=== PATIENT | female | born 1985 | race Caucasian/White ===

== ENCOUNTER 2018-05-22 07:30 | Emergency (ER) | payer SELFPAY ==
[~2018-05-22] VITALS: Ht 160 cm; Wt 113.0 kg
[2018-05-22] MEDS ORDERED: ONDANSETRON HCL 4MG/2ML INJ IV STA (07:59)
[2018-05-22] MEDS ORDERED: KETOROLAC 30MG/ML VIAL IV STA (07:59)
[2018-05-22] MEDS ORDERED: ACETAMINOPHEN 325MG TABLET PO STA (07:59)
[2018-05-22] MEDS ORDERED: SODIUM CHLORIDE 0.9% 1,000 ML IV ONE (07:59)
[2018-05-22] MEDS ORDERED: MORPHINE SULFATE 4 MG/ML CPJ (NOT FOR IM USE) IV STA (07:59)
[2018-05-22] MEDS ORDERED: VANCOMYCIN 1 G PREMIX 200 ML IV ONE (08:00)
[2018-05-22] MEDS ORDERED: SODIUM CHLORIDE 0.9% 1000ML BAG (SEPSIS BOLUS) IV ONE (08:00)
[2018-05-22] MEDS ORDERED: PIPERACILLIN/TAZ 3.375G PREMIX 50 ML IV ONE (08:00)
[2018-05-22] MEDS ORDERED: TETANUS, DIPHTHERIA, PERTUSSIS VAC/PF 0.5ML (>7YR OLD) IM ONE (08:15)
[2018-05-22 08:39] LABS: BASOPHILS % 0.6 % (0.0-2.0); EOSINOPHILS % 1.9 % (0.0-5.0); HEMATOCRIT. 40.4 % (36.0-48.0); HEMOGLOBIN. 13.6 g/dL (12.0-16.0); LYMPHOCYTES % 23.1 % (20.0-50.0); MEAN CORPUSCULAR HEMOGLOBIN 30.3 pg (28.0-32.0); MEAN CORPUSCULAR VOLUME 90.2 fL (81.0-99.0); MEAN PLATELET VOLUME 8.8 fl (7.4-10.4); MONOCYTES % 6.5 % (2.0-8.0); NEUTROPHILS % 67.9 % (40.0-76.0); PLATELET 115 x1000/uL (130-400); RED BLOOD CELL COUNT 4.48 mill/uL (4.2-5.4); RED CELL DISTRIBUTION WIDTH 12.8 % (11.6-14.6)
[2018-05-22 08:51] LABS: CHLORIDE 105 mEq/L (98-107)
[2018-05-22 09:00] LABS: HCG SCREEN NEGATIVE
[2018-05-22 09:16] LABS: CLARITY URINE CLOUDY (CLEAR); COLOR URINE YELLOW (YELLOW); PH URINE 6.5 (4.5-8.0); SPECIFIC GRAVITY URINE 1.027 (1.005-1.030)
[2018-05-22 09:17] LABS: KETONES URINE NEGATIVE (NEGATIVE); LEUKOCYTE ESTERASE URINE 3+ (NEGATIVE); NITRITE URINE POSITIVE (NEGATIVE); OCCULT BLOOD URINE TRACE (NEGATIVE); PROTEIN URINE NEGATIVE (NEGATIVE)
[2018-05-22 12:32] VITALS: BP 121/72
== END 2018-05-22 12:45 | disposition short-term general hospital (02) ==
LOC: ER 08:40 → CANBEDREQ 12:44 → ER 12:45
DX: M65.842 Other synovitis and tenosynovitis, left hand (principal); J45.909 Unspecified asthma, uncomplicated
CPT/HCPCS: 36415; 73130; 80053; 81003; 81025; 83605; 84145; 84484; 84703; 85025; 85610; 87040; 87070; 87077; 87086; 87186; 87205; 90471; 90715; 93005; 96365; 96368; 96375; 99285; J1885; J2270; J2405; J2543; J3370; J7030; J7040; Z7610

== ENCOUNTER 2018-10-14 15:06 | Emergency (ER) | payer MEDICAID ==
[~2018-10-14] VITALS: Ht 160 cm; Wt 118.0 kg
[2018-10-14 16:13] LABS: CLARITY URINE CLEAR (CLEAR); COLOR URINE YELLOW (YELLOW); KETONES URINE NEGATIVE (NEGATIVE); LEUKOCYTE ESTERASE URINE TRACE (NEGATIVE); NITRITE URINE NEGATIVE (NEGATIVE); OCCULT BLOOD URINE NEGATIVE (NEGATIVE); PH URINE 6.5 (4.5-8.0); PROTEIN URINE NEGATIVE (NEGATIVE); SPECIFIC GRAVITY URINE 1.003 (1.005-1.030); UROBILINOGEN URINE 0.2 E.U./dL (0.2-1.0)
[2018-10-14] MEDS ORDERED: ACETAMINOPHEN 325MG TABLET PO PRN (23:00)
[2018-10-14 23:24] LABS: BASOPHILS % 0.3 % (0.0-2.0); EOSINOPHILS % 1.8 % (0.0-5.0); HEMATOCRIT. 33.4 % (36.0-48.0); HEMOGLOBIN. 11.2 g/dL (12.0-16.0); LYMPHOCYTES % 30.1 % (20.0-50.0); MEAN CORPUSCULAR HEMOGLOBIN 29.5 pg (28.0-32.0); MEAN CORPUSCULAR VOLUME 87.9 fL (81.0-99.0); MEAN PLATELET VOLUME 9.3 fl (7.4-10.4); MONOCYTES % 8.8 % (2.0-8.0); PLATELET 69 x1000/uL (130-400); RED CELL DISTRIBUTION WIDTH 13.5 % (11.6-14.6)
[2018-10-14 23:29] LABS: CHLORIDE 109 mEq/L (98-107)
[2018-10-14 23:54] LABS: B-HCG QUANTITATIVE 15576 mIU/mL (<3)
[2018-10-15] MEDS ORDERED: NITROFURANTOIN 100MG M/M CAPSULE PO SCH (01:06)
[2018-10-15 01:23] VITALS: BP 110/50
== END 2018-10-15 01:24 | disposition home or self-care (01) ==
LOC: ER 15:06
DX: O23.42 Unspecified infection of urinary tract in pregnancy, second trimester (principal); O99.512 Diseases of the respiratory system complicating pregnancy, second trimester; O21.9 Vomiting of pregnancy, unspecified; Z3A.15 15 weeks gestation of pregnancy; F15.10 Other stimulant abuse, uncomplicated; J45.909 Unspecified asthma, uncomplicated; Z98.890 Other specified postprocedural states
CPT/HCPCS: 36415; 76805; 81025; 84702; 86850; 86900; 99284

== ENCOUNTER 2019-03-03 21:02 | Observation (INO) | payer MEDICAID ==
[2019-03-03] MEDS ORDERED: RANI-383 PO (22:07)
[2019-03-03] MEDS ORDERED: FERR325T6 PO (22:07)
[2019-03-03] MEDS ORDERED: PREN-55 PO (22:07)
[2019-03-03] MEDS ORDERED: VIT1TABL86 PO (22:07)
[2019-03-03] MEDS ORDERED: LORA5TAB8 PO (22:07)
== END 2019-03-03 22:25 | disposition home or self-care (01) ==
LOC: 8 EST LDRP 21:02
PROVIDERS: ADMIT Obstetrics & Gynecology; ATTEND Obstetrics & Gynecology
DX: O26.893 Other specified pregnancy related conditions, third trimester (principal); R51 Headache; R50.9 Fever, unspecified; R05 Cough; Z3A.34 34 weeks gestation of pregnancy
CPT/HCPCS: G0378

== ENCOUNTER 2019-03-03 22:48 | Emergency (ER) | payer MEDICAID ==
[~2019-03-03] VITALS: Ht 162.6 cm; Wt 109.0 kg
[~2019-03-03 22:48] MED LIST: FERR325T6 PO; LORA5TAB8 PO; PREN-55 PO; RANI-383 PO; VIT1TABL86 PO
[2019-03-04 03:02] VITALS: BP 99/54
== END 2019-03-04 03:04 | disposition home or self-care (01) ==
LOC: ER 22:48
DX: O99.513 Diseases of the respiratory system complicating pregnancy, third trimester (principal); Z3A.34 34 weeks gestation of pregnancy; F15.10 Other stimulant abuse, uncomplicated; Z98.890 Other specified postprocedural states; Z79.899 Other long term (current) drug therapy
CPT/HCPCS: 99283

== ENCOUNTER 2019-03-17 12:16 | Inpatient (IN) | payer MEDICAID ==
[~2019-03-17] VITALS: Ht 160 cm; Wt 112.0 kg
[2019-03-17] MEDS ORDERED: LACTATED RINGERS 1,000 ML IV SCH (13:13)
[2019-03-17] MEDS ORDERED: DEXT 5%/LR + PITOCIN 20UNITS/L 1,000 ML IV SCH (13:13)
[2019-03-17] MEDS ORDERED: EPHEDRINE SULFATE 50MG/ML VIAL ONE (13:30)
[2019-03-17] MEDS ORDERED: OXYTOCIN 10 UNITS/ML 1ML ONE (13:30)
[2019-03-17] MEDS ORDERED: GLYCOPYRROLATE 0.2 MG/ML 2ML VIAL ONE (13:30)
[2019-03-17] MEDS ORDERED: CEFAZOLIN SODIUM 1000MG/VIAL ONE (13:30)
[2019-03-17] MEDS ORDERED: PHENYLEPHRINE HCL 10 MG/ML 1ML (IV VIAL) IV ONE (13:30)
[2019-03-17] MEDS ORDERED: CITRIC ACID/SODIUM CITRATE SOLN 30ML UDC PO NR (13:30)
[2019-03-17] MEDS ORDERED: FENTANYL CITRATE/PF 50MCG/ML 2ML VIAL ONE (13:30)
[2019-03-17] MEDS ORDERED: MORPHINE SULFATE/PF 1MG/ML 10ML AMP ONE (13:30)
[2019-03-17] MEDS ORDERED: ONDANSETRON HCL 4MG/2ML INJ ONE (13:30)
[2019-03-17 14:01] LABS: CLARITY URINE CLEAR (CLEAR); COLOR URINE YELLOW (YELLOW); KETONES URINE NEGATIVE (NEGATIVE); LEUKOCYTE ESTERASE URINE 2+ (NEGATIVE); NITRITE URINE NEGATIVE (NEGATIVE); OCCULT BLOOD URINE TRACE (NEGATIVE); PROTEIN URINE NEGATIVE (NEGATIVE); SPECIFIC GRAVITY URINE 1.021 (1.005-1.030)
[2019-03-17 14:04] LABS: BASOPHILS % 0.4 % (0.0-2.0); EOSINOPHILS % 0.8 % (0.0-5.0); HEMATOCRIT. 31.2 % (36.0-48.0); HEMOGLOBIN. 10.7 g/dL (12.0-16.0); LYMPHOCYTES % 26.3 % (20.0-50.0); MEAN CORPUSCULAR HEMOGLOBIN 29.8 pg (28.0-32.0); MEAN CORPUSCULAR VOLUME 87.2 fL (81.0-99.0); MEAN PLATELET VOLUME 9.6 fl (7.4-10.4); MONOCYTES % 5.5 % (2.0-8.0); PLATELET 208 x1000/uL (130-400); RED BLOOD CELL COUNT 3.58 mill/uL (4.2-5.4); RED CELL DISTRIBUTION WIDTH 13.3 % (11.6-14.6)
[2019-03-17 14:08] LABS: INR 0.9; PARTIAL THROMBOPLASTIN TIME 26.6 sec (23.4-31.0); PROTHROMBIN TIME 9.4 sec (9.6-11.0)
[2019-03-17 14:22] LABS: *BARBITURATES SCREEN URINE NEGATIVE (NEGATIVE)
[2019-03-17 14:23] LABS: *BENZODIAZEPINES SCREEN URINE NEGATIVE (NEGATIVE); *COCAINE SCREEN URINE NEGATIVE (NEGATIVE); CANNABINOID URINE SCREEN NEGATIVE (NEGATIVE); METHADONE URINE SCREEN NEGATIVE (NEGATIVE); OPIATES URINE SCREEN NEGATIVE (NEGATIVE); PHENCYCLIDINE URINE SCREEN NEGATIVE (NEGATIVE)
[2019-03-17 14:30] LABS: *AMPHETAMINES SCREEN URINE PRESUMTIVE POSITIVE (NEGATIVE)
[2019-03-17 14:54] LABS: HEPATITIS B SURFACE ANTIGEN NEGATIVE
[2019-03-17] MEDS ORDERED: KETOROLAC 60MG/2ML VIAL IM ONE (23:30)
[2019-03-17] MEDS ORDERED: MIDAZOLAM HCL 2 MG/2 ML VIAL ONE (23:40)
[2019-03-18] VITALS (8 sets, daily range): BP systolic 83–117; BP diastolic 43–66
[2019-03-18] MEDS ORDERED: DEXT 5%/LR + PITOCIN 20UNITS/L 1,000 ML IV SCH (00:14)
[2019-03-18] MEDS ORDERED: ONDANSETRON HCL 4MG/2ML INJ IV PRN (00:15)
[2019-03-18] MEDS ORDERED: HEMORRHOIDAL SUPP PR PRN (00:15)
[2019-03-18] MEDS ORDERED: RHO(D) IMMUNE GLOBULIN 300 MCG/SYR IM PRN (00:15)
[2019-03-18] MEDS ORDERED: ACETAMINOPHEN WITH CODEINE 300/30MG TABLET PO PRN (00:15)
[2019-03-18] MEDS ORDERED: LANOLIN OINT 7GM TUBE TOP PRN (00:15)
[2019-03-18] MEDS ORDERED: DIPHENHYDRAMINE 25MG CAPSULE PO PRN (00:15)
[2019-03-18] MEDS ORDERED: BUTORPHANOL TARTRATE 2 MG/ML VIAL IV PRN (00:30)
[2019-03-18] MEDS ORDERED: NALOXONE HCL 0.4 MG/ML 1ML VIAL IV PRN (00:30)
[2019-03-18] MEDS ORDERED: DIPHENHYDRAMINE 50MG/ML VIAL IV PRN (00:30)
[2019-03-18] MEDS ORDERED: KETOROLAC 30MG/ML VIAL IV SCH (00:30)
[2019-03-18] MEDS: MAGNESIUM/ALUMINUM HYDROXIDE/SIMETHICONE 30ML UDC PO SCH ×4 (07:30→21:00)
[2019-03-18] MEDS: SIMETHICONE 80MG TABLET CHEW PO SCH ×4 (08:00→20:59)
[2019-03-18] MEDS: PRENATAL VIT/FE FUMARATE/FA TABLET PO SCH (09:00)
[2019-03-18] MEDS: IBUPROFEN 400MG TABLET PO PRN (16:47)
[2019-03-18] MEDS: DOCUSATE SODIUM 100MG CAPSULE PO SCH (20:58)
[2019-03-19 04:00] VITALS: BP 122/75
[2019-03-19] MEDS: IBUPROFEN 400MG TABLET PO PRN ×3 (04:31→17:07)
[2019-03-19 07:45] VITALS: BP 113/69
[2019-03-19 08:34] LABS: BASOPHILS % 0.2 % (0.0-2.0); EOSINOPHILS % 0.5 % (0.0-5.0); HEMATOCRIT. 31.6 % (36.0-48.0); HEMOGLOBIN. 10.7 g/dL (12.0-16.0); LYMPHOCYTES % 18.8 % (20.0-50.0); MEAN CORPUSCULAR HEMOGLOBIN 29.8 pg (28.0-32.0); MEAN CORPUSCULAR VOLUME 88.5 fL (81.0-99.0); MEAN PLATELET VOLUME 9.2 fl (7.4-10.4); MONOCYTES % 5.3 % (2.0-8.0); NEUTROPHILS % 75.2 % (40.0-76.0); PLATELET 195 x1000/uL (130-400); RED BLOOD CELL COUNT 3.58 mill/uL (4.2-5.4); RED CELL DISTRIBUTION WIDTH 13.4 % (11.6-14.6)
[2019-03-19] MEDS: SIMETHICONE 80MG TABLET CHEW PO SCH ×2 (11:07→22:42)
[2019-03-19] MEDS: FERROUS SULFATE 325MG TABLET PO SCH (11:08)
[2019-03-19 15:00] VITALS: BP 109/60
[2019-03-19 19:52] VITALS: BP 123/69
[2019-03-19] MEDS: DOCUSATE SODIUM 100MG CAPSULE PO SCH (22:42)
[2019-03-19] MEDS: MAGNESIUM/ALUMINUM HYDROXIDE/SIMETHICONE 30ML UDC PO SCH (22:43)
[2019-03-19] MEDS: ACETAMINOPHEN WITH CODEINE 300/30MG TABLET PO PRN (22:53)
[2019-03-20] VITALS: BP 149/86
[2019-03-20 04:00] VITALS: BP 138/81
[2019-03-20] MEDS: ACETAMINOPHEN WITH CODEINE 300/30MG TABLET PO PRN (04:47)
[2019-03-20] MEDS: IBUPROFEN 400MG TABLET PO PRN (08:53)
[2019-03-20] MEDS: FERROUS SULFATE 325MG TABLET PO SCH (08:54)
[2019-03-20] MEDS: SIMETHICONE 80MG TABLET CHEW PO SCH (08:54)
[2019-03-20] MEDS: PRENATAL VIT/FE FUMARATE/FA TABLET PO SCH (08:54)
[2019-03-20 09:00] VITALS: BP 117/80
[2019-03-23 04:13] LABS: AMPHETAMINE CONF URINE Positive (.)
== END 2019-03-20 12:00 | disposition home or self-care (01) | DRG 540 ==
LOC: 8 EST LDRP 12:16 → OBSVTOIN 12:16 → 8 EST LDRP 15:41 → 8EST 03-18 01:50
PROVIDERS: ADMIT Obstetrics & Gynecology; ATTEND Obstetrics & Gynecology
PROC: 10D00Z1 Extraction of Products of Conception, Low, Open Approach (ICD-10-PCS; principal; 2019-03-17)
DX: O41.03X0 Oligohydramnios, third trimester, not applicable or unspecified (principal); O99.324 Drug use complicating childbirth; Z37.0 Single live birth; O34.211 Maternal care for low transverse scar from previous cesarean delivery; F16.10 Hallucinogen abuse, uncomplicated; E66.9 Obesity, unspecified; F15.10 Other stimulant abuse, uncomplicated; J45.909 Unspecified asthma, uncomplicated; O36.5930 Maternal care for other known or suspected poor fetal growth, third trimester, not applicable or unspecified; O99.02 Anemia complicating childbirth; O99.214 Obesity complicating childbirth; O99.52 Diseases of the respiratory system complicating childbirth; Z3A.37 37 weeks gestation of pregnancy
CPT/HCPCS: 36415; 80305; 80307; 80359; 81003; 86592; 86703; 86762; 86850; 86900; 87077; 87186; 87340; 88307; G0378; J0690; J1885; J2250; J2274; J2370; J2405; J2590; J3010; J3490; Q0163

== ENCOUNTER 2019-09-13 21:20 | Emergency (ER) | payer MEDICAID ==
[~2019-09-13] VITALS: Ht 160 cm; Wt 115.0 kg
[2019-09-13] MEDS ORDERED: FAMOTIDINE 20MG/2ML VIAL IV STA (23:42)
[2019-09-13] MEDS ORDERED: MORPHINE SULFATE 4 MG/ML CPJ (NOT FOR IM USE) IV STA (23:42)
[2019-09-13] MEDS ORDERED: ONDANSETRON HCL 4MG/2ML INJ IV STA (23:42)
[2019-09-14] MEDS ORDERED: KETOROLAC 15MG/ML VIAL IV ONE (00:15)
[2019-09-14 00:21] LABS: BASOPHILS % 0.5 % (0.0-2.0); EOSINOPHILS % 2.8 % (0.0-5.0); HEMATOCRIT. 39.8 % (36.0-48.0); HEMOGLOBIN. 13.2 g/dL (12.0-16.0); LYMPHOCYTES % 50.4 % (20.0-50.0); MEAN CORPUSCULAR HEMOGLOBIN 29.8 pg (28.0-32.0); MEAN CORPUSCULAR VOLUME 89.8 fL (81.0-99.0); MEAN PLATELET VOLUME 9.2 fl (7.4-10.4); MONOCYTES % 7.2 % (2.0-8.0); NEUTROPHILS % 39.1 % (40.0-76.0); PLATELET 70 x1000/uL (130-400); RED BLOOD CELL COUNT 4.43 mill/uL (4.2-5.4); RED CELL DISTRIBUTION WIDTH 12.7 % (11.6-14.6)
[2019-09-14 00:26] LABS: CHLORIDE 108 mEq/L (98-107)
[2019-09-14 01:33] LABS: CLARITY URINE CLOUDY (CLEAR); COLOR URINE YELLOW (YELLOW); KETONES URINE NEGATIVE (NEGATIVE); LEUKOCYTE ESTERASE URINE 2+ (NEGATIVE); NITRITE URINE NEGATIVE (NEGATIVE); OCCULT BLOOD URINE TRACE (NEGATIVE); PROTEIN URINE TRACE (NEGATIVE); SPECIFIC GRAVITY URINE 1.024 (1.005-1.030); UROBILINOGEN URINE 0.2 E.U./dL (0.2-1.0)
[2019-09-14 05:30] VITALS: BP 85/39
== END 2019-09-14 05:53 | disposition home or self-care (01) ==
LOC: ER 21:20
DX: R10.9 Unspecified abdominal pain (principal); J45.909 Unspecified asthma, uncomplicated; Z91.013 Allergy to seafood
CPT/HCPCS: 36415; 76705; 80053; 81003; 83690; 85025; 87077; 87086; 87186; 99285; J1885; J2405; J3490

== ENCOUNTER 2019-09-25 20:12 | Emergency (ER) | payer MEDICAID ==
[~2019-09-25] VITALS: Ht 160 cm; Wt 115.0 kg
[2019-09-25] MEDS ORDERED: KETOROLAC 60MG/2ML VIAL IM STA (22:34)
[2019-09-26 00:59] VITALS: BP 121/68
== END 2019-09-26 01:40 | disposition home or self-care (01) ==
LOC: ER 20:12
DX: S62.306A Unspecified fracture of fifth metacarpal bone, right hand, initial encounter for closed fracture (principal); S60.221A Contusion of right hand, initial encounter; M25.511 Pain in right shoulder; J45.909 Unspecified asthma, uncomplicated; Z91.013 Allergy to seafood; Z98.890 Other specified postprocedural states; W22.01XA Walked into wall, initial encounter; Y93.89 Activity, other specified; Y92.018 Other place in single-family (private) house as the place of occurrence of the external cause
CPT/HCPCS: 29125; 73130; 96372; 99283; J1885